=== PATIENT | female | born 1945 ===

== ENCOUNTER 2018-01-05 19:10 | Observation (INO) | payer SELFPAY ==
--- NOTE | 2018-01-05 20:08 | ED PDOC ---
HPI: Headache Time Seen by Provider: 01/05/18 19:40 Chief Complaint (Nursing): Headache Chief Complaint (Provider): headache History Per: Patient, Family History/Exam Limitations: no limitations Onset/Duration Of Symptoms: Days (1 week), Waxing/Waning Current Symptoms Are (Timing): Still Present Quality: Pressure, "Pain" Associated Symptoms: Photophobia Additional Complaint(s): 72 y/o female presents with daughter for evaluation of intermittent headaches x 1 week. Patient states pain starts in front and radiates down left side of neck in to arm. Associated photophobia. Patient also reports intermittent chest tightness with shortness of breath x 1 week, none at present. Denies fever, dizziness, extremity numbness/weakness, palpitations, leg pain/swelling. Patient visiting from [facility], came 2 months ago. Past Medical History Reviewed: Historical Data, Nursing Documentation, Vital Signs Vital Signs: Last Vital Signs Temp 98.4 F 01/05/18 19:23 Pulse 90 01/05/18 19:23 Resp 18 01/05/18 19:23 BP 172/79 H 01/05/18 19:23 Pulse Ox 99 01/05/18 19:23 - Medical History PMH: HTN - Surgical History Surgical History: Cholecystectomy - Family History Family History: States: No Known Family Hx - Living Arrangements Living Arrangements: With Family - Social History Current smoker - smoking cessation education provided: No Alcohol: None Drugs: Denies - Allergies Allergies/Adverse Reactions: Allergies Allergy/AdvReac Type Severity Reaction Status Date / Time No Known Allergies Allergy Verified 01/05/18 19:23 Review of Systems ROS Statement: Except As Marked, All Systems Reviewed And Found Negative Cardiovascular: Positive for: Chest Pain Neurological: Positive for: Headache Physical Exam - Reviewed Nursing Documentation Reviewed: Yes Vital Signs Reviewed: Yes - Physical Exam Appears: Positive for: Well, Non-toxic, No Acute Distress Head Exam: Positive for: ATRAUMATIC, NORMAL INSPECTION, NORMOCEPHALIC Skin: Positive for: Normal Color Eye Exam: Positive for: Normal appearance, EOMI, PERRL ENT: Positive for: Normal ENT Inspection Cardiovascular/Chest: Positive for: Regular Rate, Rhythm Respiratory: Positive for: Normal Breath Sounds Gastrointestinal/Abdominal: Positive for: Normal Exam Back: Positive for: Normal Inspection Extremity: Positive for: Normal ROM Neurologic/Psych: Positive for: Alert, Oriented - Laboratory Results Result Diagrams: 01/05/18 20:40 01/05/18 20:40 - ECG ECG: Positive for: Viewed By Me (reviewed by ED attending) ECG Rhythm: Positive for: Sinus Tachycardia O2 Sat by Pulse Oximetry: 99 - Radiology X-Ray: Viewed By Me X-Ray Interpretation: No Acute Disease - Progress ED Course And Treament: labs, ekg, CT head, chest xray EXAM: CT Head Without Intravenous Contrast EXAM DATE/TIME: 01/05/2018 8:06 PM CLINICAL HISTORY: 72 years old, female; Pain; Headache; Headache not specified TECHNIQUE: Axial computed tomography images of the head/brain without intravenous contrast. All CT scans at this facility use at least one of these dose optimization techniques: automated exposure control; mA and/or kV adjustment per patient size (includes targeted exams where dose is matched to clinical indication); or iterative reconstruction. Coronal and sagittal reformatted images were created and reviewed. COMPARISON: No relevant prior studies available. FINDINGS: Brain: Periventricular low density changes suggest small vessel ischemic change but nonspecific. Mild cerebral and cerebellar atrophy. Ventricles: Normal. No ventriculomegaly. Bones/joints: Normal. No acute fracture. Sinuses: Normal as visualized. No acute sinusitis. Mastoid air cells: Normal as visualized. No mastoid effusion. Soft tissues: Normal. IMPRESSION: Negative acute Case discussed with Dr. Washington, Hospitalist on-call, for placement in observation telemetry for chest pain to r/out ACS ASA dose ordered Disposition - Clinical Impression Clinical Impression: Headache, Chest pain - Patient ED Disposition Is Patient to be Admitted: Yes - Disposition Disposition Time: 21:56 Condition: FAIR
[2018-01-05 21:05] LABS: BASO % 0.3 % (0.0-2.0); EOS # 0.1 K/uL (0.0-0.7); EOS % 1.8 % (0.0-4.0); HEMOGLOBIN 12.2 g/dL (12.0-16.0); LYMPH # 3.1 K/uL (1.0-4.3); LYMPH % 40.5 % (20.0-40.0); MEAN CELL VOLUME 85.9 fl (81.0-99.0); MEAN CORPUSCULAR HEMOGLOBIN 28.9 pg (27.0-31.0); MEAN CORPUSCULAR HGB CONC 33.6 g/dL (33.0-37.0); MEAN PLATELET VOLUME 7.5 fl (7.2-11.7); MONO # 0.7 K/uL (0.0-0.8); MONO % 8.6 % (0.0-10.0); NEUT # 3.7 K/uL (1.8-7.0); NEUT % 48.8 % (50.0-75.0); NRBC % 0.1 % (0.0-0.0); RBC 4.21 Mil/uL (3.80-5.20); RED CELL DISTRIBUTION WIDTH 13.8 % (11.5-14.5); WHITE BLOOD COUNT 7.6 K/uL (4.8-10.8)
[2018-01-05 21:08] LABS: ALB/GLOB RATIO 1.1 (1.0-2.1); ALBUMIN 4.4 g/dL (3.5-5.0); ALT/SGPT 32 U/L (9-52); AST/SGOT 40 U/L (14-36); BLOOD UREA NITROGEN 21 mg/dl (7-17); CALCIUM 9.6 mg/dL (8.4-10.2); GFR AFRICAN-AMERICAN > 60; GFR NON-AFRICAN AMERICAN > 60
--- NOTE | 2018-01-05 22:01 | CP.PCM.HP ---
History of Present Illness - History of Present Illness History of Present Illness: 72 y/o female presents with daughter for evaluation of intermittent headaches x 1 week. Patient states pain starts in front and radiates down left side of neck in to arm. Associated photophobia. Patient also reports intermittent chest tightness with shortness of breath x 1 week, none at present. Denies fever, dizziness, extremity numbness/weakness, palpitations, leg pain/swelling. Patient visiting from [facility], came 2 months ago. ROS: 14 systems reviewed, negative other than HPI MHx: HTN SHx: GB surgery Allergies: NKDA Medications: per med rec Family Hx: no relevant information Social Hx: is visiting from [facility], no tobacco, no EtOH Surrogate Dec Mkr: Daughter, info on chart Present on Admission - Present on Admission Any Indicators Present on Admission: No Past Patient History - Past Social History Alcohol: None Drugs: Denies - CARDIAC Hx Hypertension: Yes - PSYCHIATRIC Hx Substance Use: No - SURGICAL HISTORY Hx Cholecystectomy: Yes - ANESTHESIA Hx Anesthesia: Yes Hx Anesthesia Reactions: No Hx Malignant Hyperthermia: No Meds Allergies/Adverse Reactions: Allergies Allergy/AdvReac Type Severity Reaction Status Date / Time No Known Allergies Allergy Verified 01/05/18 19:23 Physical Exam - Constitutional Appears: No Acute Distress - Head Exam Head Exam: ATRAUMATIC, NORMOCEPHALIC - Eye Exam Eye Exam: EOMI, PERRL - ENT Exam ENT Exam: Mucous Membranes Moist - Neck Exam Neck exam: Positive for: Full Rom - Respiratory Exam Respiratory Exam: Clear to Auscultation Bilateral, NORMAL BREATHING PATTERN - Cardiovascular Exam Cardiovascular Exam: REGULAR RHYTHM, +S1, +S2 - GI/Abdominal Exam GI & Abdominal Exam: Normal Bowel Sounds, Soft - Extremities Exam Extremities exam: Positive for: full ROM, normal inspection - Neurological Exam Neurological exam: Alert, CN II-XII Intact, Oriented x3 - Psychiatric Exam Psychiatric exam: Normal Affect, Normal Mood - Skin Skin Exam: Dry, Warm Results - Vital Signs Recent Vital Signs: Last Vital Signs Temp 98.4 F 01/05/18 19:23 Pulse 84 01/05/18 20:29 Resp 16 01/05/18 19:59 BP 141/73 01/05/18 20:29 Pulse Ox 99 01/05/18 21:56 - Labs Result Diagrams: 01/05/18 20:40 01/05/18 20:40 Labs: Laboratory Results - last 24 hr 01/05/18 01/05/18 01/05/18 20:40 20:40 20:40 WBC 7.6 RBC 4.21 Hgb 12.2 Hct 36.2 MCV 85.9 MCH 28.9 MCHC 33.6 RDW 13.8 Plt Count 315 MPV 7.5 Neut % (Auto) 48.8 L Lymph % (Auto) 40.5 H [place] % (Auto) 8.6 Eos % (Auto) 1.8 Baso % (Auto) 0.3 Neut # (Auto) 3.7 Lymph # (Auto) 3.1 [place] # (Auto) 0.7 Eos # (Auto) 0.1 Baso # (Auto) 0.0 D-Dimer, Quantitative 194 Sodium 142 Potassium 4.4 Chloride 101 Carbon Dioxide 28 Anion Gap 17 BUN 21 H Creatinine 0.7 Est GFR ( Amer) > 60 Est GFR (Non-Af Amer) > 60 Random Glucose 100 Calcium 9.6 Total Bilirubin 0.3 AST 40 H ALT 32 Alkaline Phosphatase 95 Troponin I < 0.0120 Total Protein 8.2 Albumin 4.4 Globulin 3.8 Albumin/Globulin Ratio 1.1 TSH 3rd Generation 1.49 Assessment & Plan (1) Chest pain Assessment and Plan: 72 y/o female with HTN presenting with WEST and CP. -tele obs -serial trops -AM EKG -Consider Echo -ASA 325 daily -SLNG PRN -Tylenol for WEST PRN -SQ Lovenox for DVT PPx Status: Acute (2) Headache Status: Acute (3) HTN (hypertension) Status: Acute (4) DVT (deep venous thrombosis) Status: Acute
[2018-01-06] MEDS ORDERED: Pneumococcal 23-Valent Vaccine IM ONE (02:27)
[2018-01-06 04:58] VITALS: RESP 18
[2018-01-06 05:46] LABS: BASO % 0.3 % (0.0-2.0); EOS # 0.1 K/uL (0.0-0.7); EOS % 1.9 % (0.0-4.0); HEMOGLOBIN 11.5 g/dL (12.0-16.0); LYMPH # 3.8 K/uL (1.0-4.3); LYMPH % 47.5 % (20.0-40.0); MEAN CORPUSCULAR HEMOGLOBIN 28.6 pg (27.0-31.0); MEAN CORPUSCULAR HGB CONC 33.7 g/dL (33.0-37.0); MEAN PLATELET VOLUME 7.6 fl (7.2-11.7); MONO # 0.7 K/uL (0.0-0.8); MONO % 8.3 % (0.0-10.0); NEUT # 3.4 K/uL (1.8-7.0); NRBC % 0.1 % (0.0-0.0); RED CELL DISTRIBUTION WIDTH 13.7 % (11.5-14.5)
[2018-01-06 05:52] LABS: BLOOD UREA NITROGEN 20 mg/dl (7-17); CALCIUM 9.1 mg/dL (8.4-10.2); GFR AFRICAN-AMERICAN > 60; GFR NON-AFRICAN AMERICAN > 60; HDL CHOLESTEROL 52 MG/DL (30-70)
[2018-01-06 06:03] LABS: LDL CHOLESTEROL 94 mg/dL (0-129)
--- NOTE | 2018-01-06 07:23 | CT ---
Date of service: 01/05/2018 PROCEDURE: CT HEAD WITHOUT CONTRAST. HISTORY: headache COMPARISON: None available. TECHNIQUE: Axial computed tomography images were obtained through the head/brain without intravenous contrast. Radiation dose: Total exam DLP = 635 mGy-cm. This CT exam was performed using one or more of the following dose reduction techniques: Automated exposure control, adjustment of the mA and/or kV according to patient size, and/or use of iterative reconstruction technique. FINDINGS: HEMORRHAGE: No intracranial hemorrhage. BRAIN: No mass effect or edema. Scattered focal lucencies in the subcortical and periventricular white matter suggestive for chronic microvascular ischemic change. Mild cerebral and cerebellar atrophy. VENTRICLES: Unremarkable. No hydrocephalus. CALVARIUM: Unremarkable. PARANASAL SINUSES: Unremarkable as visualized. No significant inflammatory changes. MASTOID AIR CELLS: Unremarkable as visualized. No inflammatory changes. OTHER FINDINGS: None. IMPRESSION: Atrophy. Chronic microvascular ischemic changes. If symptoms persist, consider correlation with MRI. These findings were preliminarily reported at 9:34 p.m. on 01/05/[address] Master Mason from [facility].
[2018-01-06] MEDS ORDERED: Enoxaparin 40 mg Syringe SC SCH (09:00)
--- NOTE | 2018-01-06 10:44 | RAD ---
Date of service: 01/05/2018 HISTORY: chest pain COMPARISON: No prior. FINDINGS: LUNGS: Prominence of pulmonary vasculature may be secondary to AP technique and/or pulmonary vascular congestion. No focal consolidation. PLEURA: No significant pleural effusion identified, no pneumothorax apparent. CARDIOVASCULAR: Cardiomediastinal silhouette appears prominent; however, this cannot be accurately assessed on an AP projection. OSSEOUS STRUCTURES: Degenerative changes. VISUALIZED UPPER ABDOMEN: Normal. OTHER FINDINGS: None. IMPRESSION: Prominence of the pulmonary vasculature may be secondary to AP technique and/or pulmonary vascular congestion. No focal consolidation or pleural effusion.
[2018-01-06 12:03] VITALS: BP 124/61; PULSE 74; TEMP 97.8; O2SAT 98
--- NOTE | 2018-01-06 12:04 | CP.PCM.DIS ---
Provider - Provider Date of Admission: 01/05/18 21:54 Attending physician: Eugenio Washington MD Time Spent in preparation of Discharge (in minutes): 30 Hospital Course - Lab Results Lab Results: Most Recent Lab Values WBC 8.0 K/uL (4.8-10.8) 01/06/18 05:25 RBC 4.00 Mil/uL (3.80-5.20) 01/06/18 05:25 Hgb 11.5 g/dL (12.0-16.0) L 01/06/18 05:25 Hct 34.0 % (34.0-47.0) 01/06/18 05:25 MCV 85.0 fl (81.0-99.0) 01/06/18 05:25 MCH 28.6 pg (27.0-31.0) 01/06/18 05:25 MCHC 33.7 g/dL (33.0-37.0) 01/06/18 05:25 RDW 13.7 % (11.5-14.5) 01/06/18 05:25 Plt Count 294 K/uL (130-400) 01/06/18 05:25 MPV 7.6 fl (7.2-11.7) 01/06/18 05:25 Neut % (Auto) 42.0 % (50.0-75.0) L 01/06/18 05:25 Lymph % (Auto) 47.5 % (20.0-40.0) H 01/06/18 05:25 [place] % (Auto) 8.3 % (0.0-10.0) 01/06/18 05:25 Eos % (Auto) 1.9 % (0.0-4.0) 01/06/18 05:25 Baso % (Auto) 0.3 % (0.0-2.0) 01/06/18 05:25 Neut # (Auto) 3.4 K/uL (1.8-7.0) 01/06/18 05:25 Lymph # (Auto) 3.8 K/uL (1.0-4.3) 01/06/18 05:25 [place] # (Auto) 0.7 K/uL (0.0-0.8) 01/06/18 05:25 Eos # (Auto) 0.1 K/uL (0.0-0.7) 01/06/18 05:25 Baso # (Auto) 0.0 K/uL (0.0-0.2) 01/06/18 05:25 D-Dimer, Quantitative 194 ng/mlDDU (0-230) 01/05/18 20:40 Sodium 140 mmol/l (132-148) 01/06/18 05:25 Potassium 4.0 MMOL/L (3.6-5.0) 01/06/18 05:25 Chloride 102 mmol/L (98-107) 01/06/18 05:25 Carbon Dioxide 29 mmol/L (22-30) 01/06/18 05:25 Anion Gap 13 (10-20) 01/06/18 05:25 BUN 20 mg/dl (7-17) H 01/06/18 05:25 Creatinine 0.6 mg/dl (0.7-1.2) L 01/06/18 05:25 Est GFR ( Amer) > 60 01/06/18 05:25 Est GFR (Non-Af Amer) > 60 01/06/18 05:25 POC Glucose (mg/dL) 114 mg/dL (65-110) H 01/05/18 22:57 Random Glucose 91 mg/dL (65-105) 01/06/18 05:25 Calcium 9.1 mg/dL (8.4-10.2) 01/06/18 05:25 Total Bilirubin 0.3 mg/dl (0.2-1.3) 01/05/18 20:40 AST 40 U/L (14-36) H 01/05/18 20:40 ALT 32 U/L (9-52) 01/05/18 20:40 Alkaline Phosphatase 95 U/L (38-126) 01/05/18 20:40 Troponin I < 0.0120 ng/mL (0.00-0.120) 01/06/18 11:13 Total Protein 8.2 G/DL (6.3-8.2) 01/05/18 20:40 Albumin 4.4 g/dL (3.5-5.0) 01/05/18 20:40 Globulin 3.8 gm/dL (2.2-3.9) 01/05/18 20:40 Albumin/Globulin Ratio 1.1 (1.0-2.1) 01/05/18 20:40 Triglycerides 143 mg/DL (0-149) 01/06/18 05:25 Cholesterol 185 mg/dL (0-199) 01/06/18 05:25 LDL Cholesterol Direct 94 mg/dL (0-129) 01/06/18 05:25 HDL Cholesterol 52 MG/DL (30-70) 01/06/18 05:25 TSH 3rd Generation 1.49 mIU/ML (0.46-4.68) 01/05/18 20:40 - Hospital Course Hospital Course: 72 y/o female presents with daughter for evaluation of intermittent headaches x 1 week. Patient states pain starts in front and radiates down left side of neck in to arm. Associated photophobia. Patient also reports intermittent chest tightness with shortness of breath x 1 week, none at present. Denies fever, dizziness, extremity numbness/weakness, palpitations, leg pain/swelling. Patient visiting from [facility], came 2 months ago. Troponins trended, +COSTOCHONDRAL tenderness on exam, negative trops, no acute changes on EKG. CT head negative. HD stable. Patient stable for discharge home with follow up with [facility]. Discharge Exam - Head Exam Additional comments: Vitals Reviewed GEN: WDWN, alert, cooperative HEENT: NCAT, PERRL, EOMI HEART: RRR, +S1S2, NO MRG COSTOCHONDRAL TENDERNESS LUNG: CTAB, NO WRR ABD: soft, NT, ND, No HSM, No masses EXT: normal pedal pulses, normal capillary refill NEURO: awake, alert, no focal deficits SKIN: warm, dry PSYCH: normal mood, normal affect Discharge Plan - Discharge Medications Prescriptions: Aspirin 325 mg PO DAILY #30 tab - Follow Up Plan Condition: FAIR Disposition: HOME/ ROUTINE Additional Instructions: follow up at [facility] IN ONE WEEK. Referrals: [facility] [Provider Group]
--- NOTE | 2018-01-09 11:50 | CARD ---
APPROVED REPORT Date of service: 01/05/2018 EKG Measurement Heart [id number] <Conclusion> Sinus tachycardia Low voltage QRS Nonspecific ST and T wave abnormality Abnormal ECG
== END 2018-01-06 15:10 | disposition home or self-care (01) ==
LOC: H.ER 19:10 → H.ERHOLD 21:54 → H.TEL 23:56
PROVIDERS: ADMIT Internal Medicine; ATTEND Internal Medicine
DX: R07.9 Chest pain, unspecified (principal); R51 Headache; I10 Essential (primary) hypertension; Z23 Encounter for immunization
CPT/HCPCS: 36415; 70450; 71045; 80048; 80053; 80061; 82948; 84443; 84484; 85025; 85378; 90732; 99285; G0009; G0378; J1650

== ENCOUNTER 2018-01-19 19:51 | Observation (INO) | payer SELFPAY ==
--- NOTE | 2018-01-19 20:36 | ED PDOC ---
Syncope/Near Syncope/Dizziness Time Seen by Provider: 01/19/18 20:04 Chief Complaint (Nursing): Syncope Chief Complaint (Provider): Syncope History Per: Patient, Family (Grandson) History/Exam Limitations: no limitations Onset/Duration Of Symptoms: Other (just prior to arrival) Current Symptoms Are (Timing): Still Present Additional Complaint(s): 72 y/o female with a PMHx of HTN presenting with grandson for evaluation of syncopal episode just prior to arrival. Patient states she felt her blood pressure go down and she lost consciousness just prior to arrival. Patient was caught by her grandson who reports the patient did not have any convulsive activity, but states she hit her head on the wall behind her. He states she did not fall to the ground and the patient regained consciousness after a minute. He denies a postictal state. Patient reports this has happened before in the past. She reports some non-bloody diarrhea and abdominal pain x2 days. She denies any vomiting, melena, hematochezia, or sick contacts. Of note, patient was hospitalized 01/05 for chest pain r/o ACS. [place] [facility]. PMD: None in [place] Past Medical History Reviewed: Historical Data Vital Signs: Last Vital Signs Temp 97.9 F 01/19/18 19:58 Pulse 88 01/19/18 19:58 Resp 18 01/19/18 19:58 BP 156/64 H 01/19/18 19:58 Pulse Ox 98 01/19/18 19:58 - Medical History PMH: HTN Denies: Chronic Kidney Disease - Surgical History Surgical History: Cholecystectomy - Family History Family History: States: Hypertension - Social History Current smoker - smoking cessation education provided: No Alcohol: None Drugs: Denies - Home Medications Home Medications: Ambulatory Orders Medication Instructions Recorded Aspirin 325 mg PO DAILY #30 tab 01/06/18 - Allergies Allergies/Adverse Reactions: Allergies Allergy/AdvReac Type Severity Reaction Status Date / Time No Known Allergies Allergy Verified 01/19/18 19:58 Review of Systems ROS Statement: Except As Marked, All Systems Reviewed And Found Negative Gastrointestinal: Positive for: Abdominal Pain, Diarrhea. Negative for: Vomiting, Melena, Hematochezia Neurological: Positive for: Other (syncope). Negative for: Seizures Physical Exam - Reviewed Nursing Documentation Reviewed: Yes Vital Signs Reviewed: Yes - Physical Exam Appears: Positive for: No Acute Distress (tired appearing) Skin: Positive for: Warm, Dry, Pallor Eye Exam: Positive for: EOMI, PERRL. Negative for: Nystagmus ENT: Positive for: Other (tacky mucous membranes) Neck: Positive for: Trachea Midline Cardiovascular/Chest: Positive for: Regular Rate, Rhythm. Negative for: Murmur Respiratory: Positive for: Normal Breath Sounds. Negative for: Respiratory Distress Gastrointestinal/Abdominal: Positive for: Soft, Tenderness (diffuse mild tenderness to palpation). Negative for: Mass, Guarding, Rebound Back: Positive for: Normal Inspection. Negative for: Decreased ROM Extremity: Positive for: Normal ROM. Negative for: Deformity Lymphatic: Negative for: Adenopathy Neurologic/Psych: Positive for: Alert, Oriented (x3), Cerebellar Tests (negative ). Negative for: Motor/Sensory Deficits - Laboratory Results Result Diagrams: 01/20/18 05:30 01/20/18 05:30 - ECG O2 Sat by Pulse Oximetry: 98 (RA) Pulse Ox Interpretation: Normal Medical Decision Making Medical Decision Makin:21 Impression: Syncope and diarrhea. Differential diagnoses include, but are not limited to dehydration, electrolyte abnormality, anemia, diverticulitis, and gastroenteritis. Plan: -Blood type and screen -CT Abdomen and Pelvis w/ IV contrast -CT Cervical Spine w/o contrast -CT Head w/o contrast -EKG -CMP -Lact acid, plasma -Lipase -Magnesium -Phosphorus -Troponin I -CBc w/ differential -PTT/PT -alarm security or surveillance monitor -IV insertion -Glucose, Blood, POC -Reevaluation 21:51 EXAM: CT Head Without Intravenous Contrast CLINICAL HISTORY: 72 years old, female; Injury or trauma and signs and symptoms ; Fall; Initial encounter; Concussion / head injury; Syncope and collapse; Additional info: Syncope head injury TECHNIQUE: Axial computed tomography images of the head/brain without intravenous contrast. All CT scans at this facility use at least one of these dose optimization techniques: automated exposure control; mA and/or kV adjustment per patient size (includes targeted exams where dose is matched to clinical indication); or iterative reconstruction. COMPARISON: CT - HEAD W/O CONTRAST 2018-01-05 21:10 FINDINGS: Brain: Unremarkable. No hemorrhage. No significant white matter disease. No edema. Ventricles: Unremarkable. No ventriculomegaly. Bones/joints: Unremarkable. No acute fracture. Soft tissues: Unremarkable. Sinuses: Unremarkable as visualized. No acute sinusitis. Mastoid air cells: Unremarkable as visualized. No mastoid effusion. IMPRESSION: Normal head/brain CT. Thank you for allowing us to participate in the care of your patient. Dictated and Authenticated by: Jose Reaves MD 01/19/2018 9:51 PM Eastern Time ([place] & [place]) 21:54 EXAM: CT Cervical Spine Without Intravenous Contrast CLINICAL HISTORY: 72 years old, female; Pain; Neck pain; Patient HX: S/P fall; Additional info: Neck pain S/P head injury TECHNIQUE: Axial computed tomography images of the cervical spine without intravenous contrast. All CT scans at this facility use at least one of these dose optimization techniques: automated exposure control; mA and/or kV adjustment per patient size (includes targeted exams where dose is matched to clinical indication); or iterative reconstruction. COMPARISON: No relevant prior studies available. FINDINGS: Vertebrae: Degenerative facet arthropathy throughout the cervical spine. No acute fracture. Discs/spinal canal/neural foramina: Degenerative disc disease throughout the cervical spine. No spinal canal stenosis. Soft tissues: Unremarkable. Lung apices: Unremarkable as visualized. IMPRESSION: Degenerative changes cervical spine as described. Thank you for allowing us to participate in the care of your patient. Dictated and Authenticated by: Jose Reaves MD 01/19/2018 9:54 PM Eastern Time ( & [place]) EXAM: CT Abdomen and Pelvis With Intravenous Contrast CLINICAL HISTORY: 72 years old, female; Pain; Abdominal pain; Generalized; Prior surgery; Surgery date: 6+ months; Surgery type: Cholecystectomy; Additional info: Abd pain TECHNIQUE: Axial computed tomography images of the abdomen and pelvis with intravenous contrast. All CT scans at this facility use at least one of these dose optimization techniques: automated exposure control; mA and/or kV adjustment per patient size (includes targeted exams where dose is matched to clinical indication); or iterative reconstruction. Coronal and sagittal reformatted images were created and reviewed. CONTRAST: 95 mL of visipaque 320 was administered intravenously. COMPARISON: No relevant prior studies available. FINDINGS: Lung bases: Unremarkable. No mass. No consolidation. Heart: Small pericardial effusion. ABDOMEN: Liver: Small low attenuation lesion in the subcapsular liver, possibly a cyst but too small to characterize. Gallbladder and bile ducts: Cholecystectomy. No ductal dilation. Pancreas: Unremarkable. No mass. No ductal dilation. Spleen: Unremarkable. No splenomegaly. Adrenals: Unremarkable. No mass. Kidneys and ureters: Unremarkable. No solid mass. No hydronephrosis. Stomach and bowel: Unremarkable. No obstruction. No mucosal thickening. PELVIS: Appendix: Normal appendix. Bladder: Unremarkable. No mass. Reproductive: Unremarkable as visualized. ABDOMEN and PELVIS: Intraperitoneal space: Unremarkable. No free air. No significant fluid collection. Bones/joints: No acute fracture. No dislocation. Soft tissues: Unremarkable. Vasculature: Unremarkable. No abdominal aortic aneurysm. Lymph nodes: Unremarkable. No enlarged lymph nodes. IMPRESSION: Small pericardial effusion. Thank you for allowing us to participate in the care of your patient. Dictated and Authenticated by: Jose Reaves MD 01/19/2018 11:12 PM Eastern Time ([place] & [place]) RUSTY Hansen Hospitalist. Pt needs observation stay for syncope, possible cardiac event. Scribe Attestation: Documented by Mario Flynn, acting as a scribe for Kelsey Hernandes MD. Provider Scribe Attestation: All medical record entries made by the Scribe were at my direction and personally dictated by me. I have reviewed the chart and agree that the record accurately reflects my personal performance of the history, physical exam, medical decision making, and the department course for this patient. I have also personally directed, reviewed, and agree with the discharge instructions and disposition. Disposition - Clinical Impression Clinical Impression: Syncope Counseled Patient/Family Regarding: Studies Performed, Diagnosis - Disposition Disposition Time: 23:00 Condition: FAIR - Pt Status Changed To: Hospital Disposition Of: Observation - POA Present On Arrival: Falls Or Trauma
[2018-01-19 21:06] LABS: BASO % 0.3 % (0.0-2.0); EOS # 0.2 K/uL (0.0-0.7); EOS % 1.4 % (0.0-4.0); HEMOGLOBIN 11.7 g/dL (12.0-16.0); LYMPH # 3.4 K/uL (1.0-4.3); LYMPH % 30.6 % (20.0-40.0); MEAN CELL VOLUME 86.2 fl (81.0-99.0); MEAN CORPUSCULAR HGB CONC 32.5 g/dL (33.0-37.0); MEAN PLATELET VOLUME 7.5 fl (7.2-11.7); MONO # 0.8 K/uL (0.0-0.8); MONO % 7.1 % (0.0-10.0); NEUT # 6.7 K/uL (1.8-7.0); NEUT % 60.6 % (50.0-75.0); NRBC % 0.1 % (0.0-0.0); RBC 4.17 Mil/uL (3.80-5.20); RED CELL DISTRIBUTION WIDTH 14.1 % (11.5-14.5); WHITE BLOOD COUNT 11.1 K/uL (4.8-10.8)
[2018-01-19 21:20] LABS: ALB/GLOB RATIO 1.2 (1.0-2.1); ALBUMIN 4.1 g/dL (3.5-5.0); ALT/SGPT 32 U/L (9-52); AST/SGOT 44 U/L (14-36); BLOOD UREA NITROGEN 20 mg/dl (7-17); CALCIUM 9.4 mg/dL (8.4-10.2); GFR NON-AFRICAN AMERICAN 44; LIPASE 374 U/L (23-300)
[2018-01-19 21:36] LABS: INR 1.1 (0.9-1.2); PROTHROMBIN TIME 11.7 Seconds (9.8-13.1)
[2018-01-19] MEDS ORDERED: Sodium Chloride 0.9% 1,000 ML IV STA (21:37)
[2018-01-19] MEDS ORDERED: Sodium Chloride 0.9% 50 ML IV ONE (22:37)
[2018-01-19] MEDS ORDERED: Iodixanol 320 MG/ML 100 ML BOTTLE IV ONE (22:37)
[2018-01-19] MEDS ORDERED: Sodium Chloride 0.9% 1,000 ML IV SCH (23:45)
--- NOTE | 2018-01-19 23:56 | CP.PCM.HP ---
History of Present Illness - History of Present Illness History of Present Illness: CC: fall HPI: 72 year old female visiting from [facility], recently discharged appx 11 days ago after being evaluated for ACS. Patient presents today after one episode of syncope, acute onset. Not associated with any other symptoms, no post ictal state, no focal deficits. States she hither head. Not recurrent. Pt admits to several episodes of diarrhea and leg cramping as well. BUN/SCr elevated compared to prior admission, SCr 1.2 from 0.6 11 days ago. Likely vasovagal/ volume contraction. Will monitor patient on telemetry for arrhythmias, ECHO and carotids pending. Head CT normal, CT AP neg, CT CSpine neg. HD stable, NAD. ROS: per HPI all other systems reviewed and negative PMSH: HTN, cholecystectomy FH: denies SH:denies tobacco, ETOH, IVDU NKDA Present on Admission - Present on Admission Any Indicators Present on Admission: No Past Patient History - Past Medical History & Family History Past Medical History?: Yes - Past Social History Alcohol: None Drugs: Denies - CARDIAC Hx Hypertension: Yes - PULMONARY Hx Respiratory Disorders: No - NEUROLOGICAL Hx Neurological Disorder: Yes Other/Comment: headaches - HEENT Hx HEENT Problems: No - RENAL Hx Chronic Kidney Disease: No - ENDOCRINE/METABOLIC Hx Endocrine Disorders: No - HEMATOLOGICAL/ONCOLOGICAL Hx Blood Disorders: No - INTEGUMENTARY Hx Dermatological Problems: No - MUSCULOSKELETAL/RHEUMATOLOGICAL Hx Musculoskeletal Disorders: No Hx Falls: No - GASTROINTESTINAL Hx Gastrointestinal Disorders: No - GENITOURINARY/GYNECOLOGICAL Hx Genitourinary Disorders: No - PSYCHIATRIC Hx Psychophysiologic Disorder: No Hx Substance Use: No - SURGICAL HISTORY Hx Cholecystectomy: Yes - ANESTHESIA Hx Anesthesia: Yes Hx Anesthesia Reactions: No Hx Malignant Hyperthermia: No Meds Allergies/Adverse Reactions: Allergies Allergy/AdvReac Type Severity Reaction Status Date / Time No Known Allergies Allergy Verified 01/19/18 19:58 Physical Exam - Constitutional Additional comments: Vitals Reviewed GEN: WDWN, alert, cooperative HEENT: NCAT, PERRL, EOMI HEART: RRR, +S1S2, NO MRG LUNG: CTAB, NO WRR ABD: soft, NT, ND, No HSM, No masses EXT: normal pedal pulses, normal capillary refill NEURO: awake, alert, no focal deficits SKIN: warm, dry PSYCH: normal mood, normal affect Results - Vital Signs Recent Vital Signs: Last Vital Signs Temp 97.9 F 01/19/18 19:58 Pulse 88 01/19/18 19:58 Resp 18 01/19/18 19:58 BP 156/64 H 01/19/18 19:58 Pulse Ox 98 01/19/18 23:17 - Labs Result Diagrams: 01/19/18 20:26 01/19/18 20:26 Labs: Laboratory Results - last 24 hr 01/19/18 01/19/18 01/19/18 20:26 20:26 20:26 WBC 11.1 H RBC 4.17 Hgb 11.7 L Hct 36.0 MCV 86.2 MCH 28.0 MCHC 32.5 L RDW 14.1 Plt Count 325 MPV 7.5 Neut % (Auto) 60.6 Lymph % (Auto) 30.6 [place] % (Auto) 7.1 Eos % (Auto) 1.4 Baso % (Auto) 0.3 Neut # (Auto) 6.7 Lymph # (Auto) 3.4 [place] # (Auto) 0.8 Eos # (Auto) 0.2 Baso # (Auto) 0.0 PT INR APTT Sodium 141 Potassium 4.3 Chloride 102 Carbon Dioxide 26 Anion Gap 17 BUN 20 H Creatinine 1.2 Est GFR ( Amer) 53 Est GFR (Non-Af Amer) 44 POC Glucose (mg/dL) Random Glucose 153 H Lactic Acid 2.9 H Calcium 9.4 Phosphorus 2.9 Magnesium 2.0 Total Bilirubin 0.5 AST 44 H ALT 32 Alkaline Phosphatase 78 Troponin I < 0.0120 Total Protein 7.6 Albumin 4.1 Globulin 3.5 Albumin/Globulin Ratio 1.2 Lipase 374 H Blood Type Antibody Screen BBK History Checked 01/19/18 01/19/18 01/19/18 20:26 20:46 21:26 WBC RBC Hgb Hct MCV MCH MCHC RDW Plt Count MPV Neut % (Auto) Lymph % (Auto) [place] % (Auto) Eos % (Auto) Baso % (Auto) Neut # (Auto) Lymph # (Auto) [place] # (Auto) Eos # (Auto) Baso # (Auto) PT 11.7 INR 1.1 APTT 27.0 Sodium Potassium Chloride Carbon Dioxide Anion Gap BUN Creatinine Est GFR ( Amer) Est GFR (Non-Af Amer) POC Glucose (mg/dL) 128 H Random Glucose Lactic Acid Calcium Phosphorus Magnesium Total Bilirubin AST ALT Alkaline Phosphatase Troponin I Total Protein Albumin Globulin Albumin/Globulin Ratio Lipase Blood Type B POSITIVE Antibody Screen Negative BBK History Checked No verified bt Assessment & Plan - Assessment and Plan (Free Text) Plan: 72 year old female visiting from [facility], recently discharged appx 11 days ago after being evaluated for ACS. Patient presents today after one episode of syncope, acute onset. Not associated with any other symptoms, no post ictal state, no focal deficits. States she hither head. Not recurrent. Pt admits to several episodes of diarrhea and leg cramping as well. BUN/SCr elevated compared to prior admission, SCr 1.2 from 0.6 11 days ago. Likely vasovagal/ volume contraction. Will monitor patient on telemetry for arrhythmias, ECHO and carotids pending. Head CT normal, CT AP neg, CT CSpine neg. HD stable, NAD. Syncope likely secondary to volume contraction/dehydration from diarrhea. no further episodes while in hospital. head CT no acute pathology monitor on tele echo and carotids pending H/H stable Dehydration/Azotemia SCr 1.2 from 0.6 received 1L in ED cont NS @ 100 cc/hr overnight CPK pending for eval HTN monitor discontinue HCTZ DVT lovenox
[2018-01-20 06:38] LABS: HEMOGLOBIN 11.1 g/dL (12.0-16.0); MEAN CELL VOLUME 85.7 fl (81.0-99.0); MEAN CORPUSCULAR HEMOGLOBIN 29.1 pg (27.0-31.0); RBC 3.82 Mil/uL (3.80-5.20); RED CELL DISTRIBUTION WIDTH 13.7 % (11.5-14.5); WHITE BLOOD COUNT 8.6 K/uL (4.8-10.8)
[2018-01-20 06:47] LABS: BLOOD UREA NITROGEN 20 mg/dl (7-17); CALCIUM 8.7 mg/dL (8.4-10.2); GFR NON-AFRICAN AMERICAN 54
[2018-01-20 07:03] VITALS: RESP 18
--- NOTE | 2018-01-20 08:53 | CT ---
Date of service: 01/19/2018 PROCEDURE: CT HEAD WITHOUT CONTRAST. HISTORY: syncope head injury COMPARISON: Noncontrast head CT 01/05/2018. TECHNIQUE: Axial computed tomography images were obtained through the head/brain without intravenous contrast. Radiation dose: Total exam DLP = 632.15 mGy-cm. This CT exam was performed using one or more of the following dose reduction techniques: Automated exposure control, adjustment of the mA and/or kV according to patient size, and/or use of iterative reconstruction technique. FINDINGS: HEMORRHAGE: No intracranial hemorrhage. BRAIN: Stable trace chronic microangiopathy is seen in the periventricular white matter once again. Good corticomedullary differentiation is reiterated and there is no mass effect. There is no suspicious extra-axial collection appreciated in the midline brain anatomy appears nonfocal once again. Posterior fossa contents remain unremarkable appearing. VENTRICLES: Unremarkable. No hydrocephalus. CALVARIUM: Unremarkable. PARANASAL SINUSES: Unremarkable as visualized. No significant inflammatory changes. MASTOID AIR CELLS: Unremarkable as visualized. No inflammatory changes. OTHER FINDINGS: None. IMPRESSION: No interval acute intracranial findings. Trace chronic microangiopathy is once again identified, appearing stable. Follow-up CT or MRI are available as clinically warranted. Concordant preliminary report from [facility], 01/19/2018.
[2018-01-20] MEDS ORDERED: Enoxaparin 40 mg Syringe SC SCH (09:00)
--- NOTE | 2018-01-20 09:04 | CT ---
Date of service: 01/19/2018 PROCEDURE: CT Cervical Spine without contrast HISTORY: neck pain s/p head injury COMPARISON: None available. TECHNIQUE: Axial computed tomography images were obtained of the cervical spine without the use of intravenous contrast. Coronal and sagittal reformatted images were created and reviewed. Radiation dose: Total exam DLP = 302.99 mGy-cm. This CT exam was performed using one or more of the following dose reduction techniques: Automated exposure control, adjustment of the mA and/or kV according to patient size, and/or use of iterative reconstruction technique. FINDINGS: VERTEBRAE: No fracture. Normal alignment. No destructive bony lesion. C1-2 articulation is degenerated but otherwise unremarkable. Craniocervical junction appears intact. There is small defect at the medial lamina/spinous process inferiorly at C2 without significant stenosis resulting. DISCS/SPINAL CANAL/NEURAL FORAMINA: Multilevel cervical spondylosis is appreciated predominately at the mid and inferior levels with similar pattern of bilateral facet joint arthropathy. Limited degenerative changes are appreciate the facet and uncovertebral joints as well as disc interspaces C2-3 and C3-4 without significant stenosis. At C4-5, an asymmetric disc osteophyte complex is appreciated appearing left greater than right causing limited left stephanie canal stenosis. Asymmetric lateral osteophytes results in mild left neural foraminal stenosis within no significant right neural foraminal stenosis. At C5-6, there is a questionable disc herniation though this may be artifact, potentially causing mild central canal stenosis. Moderate degenerative right neural foraminal stenosis appreciate with none on the left. At C6-7 a limited disc osteophyte complex is appreciate without causing significant central canal stenosis. A moderate right but borderline left degenerative neural foraminal stenosis is appreciated. No stenosis at C7-T1 appreciated. PARASPINAL SOFT TISSUES: Immediate prevertebral paraspinal soft tissues appear unremarkable. Heterogeneous enhancement of the thyroid gland is noted without definitive focal mass identified. OTHER FINDINGS: None. IMPRESSION: 1. No fracture or spondylolisthesis identified. 2. Possible central disc herniation at C5-6 though this may be artifact. Consider follow-up MRI for added characterization here. 3. Multilevel degenerative spondylosis, uncovertebral and facet arthropathy. Variable neural foraminal stenosis is seen bilaterally as discussed above at a few levels. PA review assigned to this case.
--- NOTE | 2018-01-20 11:18 | CP.PCM.DIS ---
Addendum entered and electronically signed by Crystal Peña MD 13:30: Carotid artery U/S negative. Patient was strongly encouraged to follow up at the [facility]. Patient must also follow up at [facility] for ECHO results. Original Note: <Crystal Peña - Last Filed: 01/20/18 11:23> Provider - Provider Date of Admission: 01/19/18 23:20 Attending physician: Leyla Hansen DO Time Spent in preparation of Discharge (in minutes): 20 Diagnosis - Discharge Diagnosis (1) Syncope Status: Acute Comment: Patient's symptoms related to multiple bouts of diarrhea the day prior. Patient was told to not take her HCTZ medication until she follows up at the [facility]. Resolved. CT head- Negative; CT AP: Negative; CT spine: negative; Echo and carotid u/s completed. Patient to F/U at [facility] for ECHO and carotid results and HTN. (2) Dehydration Status: Acute Comment: Patient recieved fluids in E.D. Resolved. (3) HTN (hypertension) Status: Acute Comment: D/C HCTZ until patient follows up at [facility] clinic. Hospital Course - Lab Results Lab Results: Most Recent Lab Values WBC 8.6 K/uL (4.8-10.8) 01/20/18 05:30 RBC 3.82 Mil/uL (3.80-5.20) 01/20/18 05:30 Hgb 11.1 g/dL (12.0-16.0) L 01/20/18 05:30 Hct 32.8 % (34.0-47.0) L 01/20/18 05:30 MCV 85.7 fl (81.0-99.0) 01/20/18 05:30 MCH 29.1 pg (27.0-31.0) 01/20/18 05:30 MCHC 34.0 g/dL (33.0-37.0) 01/20/18 05:30 RDW 13.7 % (11.5-14.5) 01/20/18 05:30 Plt Count 305 K/uL (130-400) 01/20/18 05:30 MPV 7.5 fl (7.2-11.7) 01/19/18 20:26 Neut % (Auto) 60.6 % (50.0-75.0) 01/19/18 20: Lymph % (Auto) 30.6 % (20.0-40.0) 01/19/18 20:26 [place] % (Auto) 7.1 % (0.0-10.0) 01/19/18 20: Eos % (Auto) 1.4 % (0.0-4.0) 01/19/18 20: Baso % (Auto) 0.3 % (0.0-2.0) 01/19/18 20: Neut # (Auto) 6.7 K/uL (1.8-7.0) 01/19/18 20: Lymph # (Auto) 3.4 K/uL (1.0-4.3) 01/19/18 20: [place] # (Auto) 0.8 K/uL (0.0-0.8) 01/19/18 20: Eos # (Auto) 0.2 K/uL (0.0-0.7) 01/19/18 20: Baso # (Auto) 0.0 K/uL (0.0-0.2) 01/19/18 20: PT 11.7 Seconds (9.8-13.1) 01/19/18 21: INR 1.1 (0.9-1.2) 01/19/18 21: APTT 27.0 Seconds (25.6-37.1) 01/19/18 21:26 Sodium 139 mmol/l (132-148) 01/20/18 05:30 Potassium 5.0 MMOL/L (3.6-5.0) 01/20/18 05:30 Chloride 105 mmol/L (98-107) 01/20/18 05:30 Carbon Dioxide 24 mmol/L (22-30) 01/20/18 05:30 Anion Gap 15 (10-20) 01/20/18 05:30 BUN 20 mg/dl (7-17) H 01/20/18 05:30 Creatinine 1.0 mg/dl (0.7-1.2) 01/20/18 05:30 Est GFR ( Amer) > 60 01/20/18 05:30 Est GFR (Non-Af Amer) 54 01/20/18 05:30 POC Glucose (mg/dL) 128 mg/dL (65-110) H 01/19/18 20:46 Random Glucose 101 mg/dL (65-105) 01/20/18 05:30 Lactic Acid 2.9 MMOL/L (0.7-2.1) H 01/19/18 20:26 Calcium 8.7 mg/dL (8.4-10.2) 01/20/18 05:30 Phosphorus 2.9 mg/dl (2.5-4.5) 01/19/18 20:26 Magnesium 2.0 MG/DL (1.6-2.3) 01/19/18 20:26 Total Bilirubin 0.5 mg/dl (0.2-1.3) 01/19/18 20:26 AST 44 U/L (14-36) H 01/19/18 20:26 ALT 32 U/L (9-52) 01/19/18 20:26 Alkaline Phosphatase 78 U/L (38-126) 01/19/18 20:26 Total Creatine Kinase 107 U/L (30-135) 01/20/18 01:47 Troponin I < 0.0120 ng/mL (0.00-0.120) 01/19/18 20:26 Total Protein 7.6 G/DL (6.3-8.2) 01/19/18 20:26 Albumin 4.1 g/dL (3.5-5.0) 01/19/18 20:26 Globulin 3.5 gm/dL (2.2-3.9) 01/19/18 20:26 Albumin/Globulin Ratio 1.2 (1.0-2.1) 01/19/18 20:26 Lipase 374 U/L (23-300) H 01/19/18 20:26 Blood Type B POSITIVE 01/19/18 20:26 Antibody Screen Negative 01/19/18 20:26 BBK History Checked No verified bt 01/19/18 20:26 - Hospital Course Hospital Course: 72 year old female presented with one episode of acute onset syncope. Not associated with any other symptoms, no post ictal state, no focal deficits. States she hit her head. She reports that yesterday, 01/19/18, she had multiple bouts of diarrhea and leg cramping which caused her to fall. BUN/SCr were elevated compared to prior admission. CT head, AP and spine were all negative. Likely vasovagal/volume contraction due to diarrheal symptoms. Patient feels fine after receiving normal saline. Stable for discharge. Discharge Exam - Eye Exam Eye Exam: Normal appearance - ENT Exam ENT Exam: Mucous Membranes Moist, Normal Oropharynx - Respiratory Exam Respiratory Exam: Clear to PA & Lateral, NORMAL BREATHING PATTERN, UNREMARKABLE. absent: Chest Wall Tenderness, Decreased Breath Sounds, Rales, Rhonchi, Wheezes, Respiratory Distress, Stridor - Cardiovascular Exam Cardiovascular Exam: REGULAR RHYTHM, RRR, +S1, +S2. absent: Clicks, Diastolic murmur, Gallop, Rubs, Systolic Murmur - GI/Abdominal Exam GI & Abdominal Exam: Normal Bowel Sounds, Soft, Unremarkable. absent: Distended , Firm, Guarding, Mass, Organomegaly, Pulsatile Mass, Rebound, Rigid, Tenderness - Extremities Exam Extremities exam: normal inspection - Neurological Exam Neurological exam: Alert, Normal Gait, Oriented x3 - Psychiatric Exam Psychiatric exam: Normal Affect, Normal Mood - Skin Skin Exam: Dry, Intact, Normal Color, Warm Discharge Plan - Follow Up Plan Condition: GOOD Disposition: HOME/ ROUTINE Instructions: Hypertension (DC), Hypertension (GEN) <Denver Perkins - Last Filed: 01/20/18 13:36> Provider - Provider Date of Admission: 01/19/18 23:20 Attending physician: Leyla Hansen DO Hospital Course - Lab Results Lab Results: Most Recent Lab Values WBC 8.6 K/uL (4.8-10.8) 01/20/18 05:30 RBC 3.82 Mil/uL (3.80-5.20) 01/20/18 05:30 Hgb 11.1 g/dL (12.0-16.0) L 01/20/18 05:30 Hct 32.8 % (34.0-47.0) L 01/20/18 05:30 MCV 85.7 fl (81.0-99.0) 01/20/18 05:30 MCH 29.1 pg (27.0-31.0) 01/20/18 05:30 MCHC 34.0 g/dL (33.0-37.0) 01/20/18 05:30 RDW 13.7 % (11.5-14.5) 01/20/18 05:30 Plt Count 305 K/uL (130-400) 01/20/18 05:30 MPV 7.5 fl (7.2-11.7) 01/19/18 20: Neut % (Auto) 60.6 % (50.0-75.0) 01/19/18 20: Lymph % (Auto) 30.6 % (20.0-40.0) 01/19/18 20: [place] % (Auto) 7.1 % (0.0-10.0) 01/19/18 20: Eos % (Auto) 1.4 % (0.0-4.0) 01/19/18 20: Baso % (Auto) 0.3 % (0.0-2.0) 01/19/18 20: Neut # (Auto) 6.7 K/uL (1.8-7.0) 01/19/18 20: Lymph # (Auto) 3.4 K/uL (1.0-4.3) 01/19/18 20: [place] # (Auto) 0.8 K/uL (0.0-0.8) 01/19/18 20: Eos # (Auto) 0.2 K/uL (0.0-0.7) 01/19/18 20: Baso # (Auto) 0.0 K/uL (0.0-0.2) 01/19/18 20: PT 11.7 Seconds (9.8-13.1) 01/19/18 21: INR 1.1 (0.9-1.2) 01/19/18 21: APTT 27.0 Seconds (25.6-37.1) 01/19/18 21:26 Sodium 139 mmol/l (132-148) 01/20/18 05:30 Potassium 5.0 MMOL/L (3.6-5.0) 01/20/18 05:30 Chloride 105 mmol/L (98-107) 01/20/18 05:30 Carbon Dioxide 24 mmol/L (22-30) 01/20/18 05:30 Anion Gap 15 (10-20) 01/20/18 05:30 BUN 20 mg/dl (7-17) H 01/20/18 05:30 Creatinine 1.0 mg/dl (0.7-1.2) 01/20/18 05:30 Est GFR ( Amer) > 60 01/20/18 05:30 Est GFR (Non-Af Amer) 54 01/20/18 05:30 POC Glucose (mg/dL) 128 mg/dL (65-110) H 01/19/18 20:46 Random Glucose 101 mg/dL (65-105) 01/20/18 05:30 Lactic Acid 2.9 MMOL/L (0.7-2.1) H 01/19/18 20:26 Calcium 8.7 mg/dL (8.4-10.2) 01/20/18 05:30 Phosphorus 2.9 mg/dl (2.5-4.5) 01/19/18 20:26 Magnesium 2.0 MG/DL (1.6-2.3) 01/19/18 20:26 Total Bilirubin 0.5 mg/dl (0.2-1.3) 01/19/18 20:26 AST 44 U/L (14-36) H 01/19/18 20:26 ALT 32 U/L (9-52) 01/19/18 20:26 Alkaline Phosphatase 78 U/L (38-126) 01/19/18 20:26 Total Creatine Kinase 107 U/L (30-135) 01/20/18 01:47 Troponin I < 0.0120 ng/mL (0.00-0.120) 01/19/18 20:26 Total Protein 7.6 G/DL (6.3-8.2) 01/19/18 20:26 Albumin 4.1 g/dL (3.5-5.0) 01/19/18 20:26 Globulin 3.5 gm/dL (2.2-3.9) 01/19/18 20:26 Albumin/Globulin Ratio 1.2 (1.0-2.1) 01/19/18 20:26 Lipase 374 U/L (23-300) H 01/19/18 20:26 Blood Type B POSITIVE 01/19/18 20:26 Antibody Screen Negative 01/19/18 20:26 BBK History Checked No verified bt 01/19/18 20:26
--- NOTE | 2018-01-20 11:36 | CT ---
Date of service: 01/19/2018 PROCEDURE: CT Abdomen and Pelvis with contrast HISTORY: abd pain COMPARISON: None. TECHNIQUE: Following the intravenous administration of iodinated contrast material, a CT examination of the abdomen and pelvis performed from the domes of the diaphragms to the symphysis pubis with reformatted datasets provided in axial, sagittal and coronal planes. Oral contrast was not administered as per referring physician request. Contrast dose: Visipaque 320, 95 cc Radiation dose: Total exam DLP = 719.69 mGy-cm. This CT exam was performed using one or more of the following dose reduction techniques: Automated exposure control, adjustment of the mA and/or kV according to patient size, and/or use of iterative reconstruction technique. FINDINGS: Limitations: Respiratory history, peristalsis and generalized motion related artifacts obscure the evaluation. LOWER THORAX: Cardiomegaly. Trace pericardial effusion identified. No pleural effusion. LIVER: Diminished attenuation throughout the liver is compatible with hepatic steatosis. Questionable sub cm lucency medial right lobe liver anteriorly subcapsular. No definite intrahepatic biliary dilatation appreciated. GALLBLADDER AND BILE DUCTS: Prior cholecystectomy evident. Clinically correlate. PANCREAS: Unremarkable. No gross lesion or ductal dilatation. SPLEEN: Unremarkable. ADRENALS: Unremarkable. No mass. KIDNEYS AND URETERS: Unremarkable. No hydronephrosis. No solid mass. VASCULATURE: Unremarkable. No aortic aneurysm. BOWEL: The stomach is distended with retained food and is limited in evaluation and result. Lack of oral contrast limits evaluation the gastrointestinal tract. Limited sigmoid diverticulosis is noted without diverticulitis grossly evident. APPENDIX: A prominent but gas filled and thin walled appendix is identified. . No constance-appendiceal reaction or fluid collection. PERITONEUM: Unremarkable. No free fluid. No free air. LYMPH NODES: Unremarkable. No enlarged lymph nodes. BLADDER: A distended but thin and smooth walled urinary bladder is identified. No radiodense urolithiasis associated. REPRODUCTIVE: Prior hysterectomy. BONES: There is mild anterior wedging of the L1 vertebral body with loss of vertebral body height at T11 and T10 and possibly T12. These may reflect fractures though of indeterminate age. OTHER FINDINGS: None. IMPRESSION: 1. No definitive acute abdominal pelvic findings of the potentially a distended urinary bladder which is thin and smooth walled. 2. Questionable sub cm subcapsular lucency too small to characterize if not artifactual. 3. Prior cholecystectomy. 4. Limited sigmoid diverticulosis without acute changes. 5. Prior hysterectomy. 6. Incidental trace pericardial effusion. Concordant preliminary report from [facility], 01/19/2018.
--- NOTE | 2018-01-20 12:22 | US ---
Date of service: 01/20/2018 PROCEDURE: Duplex ultrasound of the carotid and vertebral arteries. HISTORY: syncope COMPARISON: None available. TECHNIQUE: Grayscale and duplex Doppler evaluation of the cervical carotid and vertebral arteries were performed. The common carotid, carotid bifurcations and cervical ICA and proximal ECA were evaluated. The vertebral arteries were evaluated for gross patency and direction. FINDINGS: RIGHT CAROTID ARTERIES: Common Carotid Artery: Intimal thickening is present Maximal flow velocity of 82.4 cm/s. Carotid Bifurcation: Normal. Internal Carotid Artery:Heterogeneous plaque formation. Tortuous distal right ICA Maximal flow velocity of 99.6 cm/s. External Carotid Artery (proximal branches): Normal. Maximal flow velocity of 112.2 cm/s. ICA/CCA Ratio: 1.2 LEFT CAROTID ARTERIES: Common Carotid Artery: Intimal thickening is present Maximal flow velocity of 90.0 cm/s. Carotid Bifurcation: Heterogeneous plaque formation. Internal Carotid Artery:Heterogeneous plaque formation. Maximal flow velocity of 100.1 cm/s. External Carotid Artery (proximal branches): Normal. Maximal flow velocity of 136.8 cm/s. ICA/CCA Ratio: 1.5 VERTEBRAL ARTERIES: Right Vertebral Artery: Patent. Antegrade flow. Left Vertebral Artery: Patent. Antegrade flow. OTHER FINDINGS: None. IMPRESSION: Right ICA degree of stenosis: Less than 50% Left ICA degree of stenosis: Less than 50% Reference Internal Carotid Artery (ICA) Peak Systolic Velocity (PSV) for above: 1. Less than 50% stenosis less than 125 cm/s peak systolic velocity 2. 50-69% stenosis 125-230cm/s peak systolic velocity 3. Greater than 70% but less than near occlusion greater than 230 cm/s peak systolic velocity
[2018-01-20 12:38] VITALS: BP 124/68; PULSE 84; TEMP 98.1
--- NOTE | 2018-01-21 20:22 | CARD ---
APPROVED REPORT Date of service: 01/20/2018 EXAM: Two-dimensional and M-mode echocardiogram with Doppler and color Doppler. Other Information Quality : GoodRhythm : NSR INDICATION Syncope 2D DIMENSIONS IVSd1.22 (0.7-1.1cm)LVDd4.10 (3.9-5.9cm) LVOT Diameter1.93 (1.8-2.4cm)PWd0.97 (0.7-1.1cm) IVSs1.41 (0.8-1.2cm)LVDs3.43 (2.5-4.0cm) FS (%) 16.3 %PWs1.14 (0.8-1.2cm) M-Mode DIMENSIONS Left Atrium (MM)3.74 (2.5-4.0cm)IVSd1.06 (0.7-1.1cm) Aortic Root2.71 (2.2-3.7cm)LVDd4.91 (4.0-5.6cm) Aortic Cusp Exc.1.68 (1.5-2.0cm)PWd1.15 (0.7-1.1cm) IVSs1.76 cmFS (%) 62 % LVDs1.88 (2.0-3.8cm)PWs1.35 cm Aortic Valve AoV Peak Affmaitd877.7cm/sAoV VTI29.2cmAO Peak GR.9mmHg LVOT Peak Pczymcby53.4cm/sLVOT VTI19.38cmAO Mean GR.5mmHg BELL (VMAX)1.31kw0ETL (VTI)1.51cg3LE P 1/2 Lbny717lt Mitral Valve MV E Rsnmdpqc25.8cm/sMV DECEL RIZR159ihRD A Fphyzrop510.5cm/s MV GCM24quW/A ratio0.7MVA (PHT)3.51cm2 TDI Lateral E' Peak V10.51cm/sMedial E' Peak V5.95cm/sE/Lateral E'6.9 E/Medial E'12.2 Pulmonary Valve PV Peak Sefroeng548.6cm/s Tricuspid Valve TR Peak Vgokkaui467jt/sRAP TLEOFQDK96loBqTJ Peak Gr.7mmHg [id number] LEFT VENTRICLE The left ventricle is normal size. There is normal left ventricular wall thickness. The left ventricular function is normal. The left ventricular ejection fraction is within the normal range. The Ejection Fraction is 60-65%. There is normal LV segmental wall motion. Transmitral Doppler flow pattern is Grade I-abnormal relaxation pattern. RIGHT VENTRICLE The right ventricle is normal size. There is normal right ventricular wall thickness. The right ventricular systolic function is normal. ATRIA The left atrium size is normal. The right atrium size is normal. The interatrial septum is intact with no evidence for an atrial septal defect. AORTIC VALVE The aortic valve is normal in structure. There is trace to mild aortic regurgitation. There is no aortic valvular stenosis. MITRAL VALVE The mitral valve is normal in structure. There is no mitral valve stenosis. Mitral regurgitation is trace to mild. TRICUSPID VALVE The tricuspid valve is normal in structure. There is trace to mild tricuspid regurgitation. PULMONIC VALVE The pulmonary valve is normal in structure. There is no pulmonic valvular regurgitation. GREAT VESSELS The aortic root is normal in size. The IVC is normal in size and collapses >50% with inspiration. PERICARDIAL EFFUSION There is a small circumferential pericardial effusion. <Conclusion> The left ventricular function is normal. The left ventricular ejection fraction is within the normal range. The Ejection Fraction is 60-65%. There is trace to mild aortic regurgitation. Mitral regurgitation is trace to mild. There is trace to mild tricuspid regurgitation. There is a small circumferential pericardial effusion.
--- NOTE | 2018-01-21 20:48 | CARD ---
APPROVED REPORT Date of service: 01/19/2018 EKG Measurement Heart [id number] NE [id number] <Conclusion> Normal sinus rhythm Normal ECG
[2018-01-24 14:07] VITALS: O2SAT 98
== END 2018-01-20 12:15 | disposition home or self-care (01) ==
LOC: H.ER 19:51 → H.ERHOLD 23:20
PROVIDERS: ADMIT Student in an Organized Health Care Education/Training Program; ATTEND Student in an Organized Health Care Education/Training Program
DX: R55 Syncope and collapse (principal); R19.7 Diarrhea, unspecified; E86.0 Dehydration; I10 Essential (primary) hypertension
CPT/HCPCS: 70450; 72125; 74177; 80048; 80053; 82550; 82948; 83605; 83690; 83735; 84100; 84484; 85025; 85027; 85610; 85730; 86850; 86900; 93005; 93306; 93880; 96360; 99285; G0378; J7030; Q9967